=== PATIENT | female | born 1975 ===

== ENCOUNTER 2024-12-26 00:40 | Emergency (ER) | payer SELFPAY ==
[~2024-12-26] VITALS: Ht 165.1 cm; Wt 75.0 kg
[2024-12-26 01:11] VITALS: O2SAT 98
[2024-12-26 02:46] VITALS: BP 91/54; PULSE 74; RESP 14; TEMP 36.8; O2SAT 99
== END 2024-12-26 02:40 | disposition home or self-care (01) ==
LOC: ER 00:50
DX: T51.0X1A Toxic effect of ethanol, accidental (unintentional), initial encounter (principal); F10.129 Alcohol abuse with intoxication, unspecified; X58.XXXA Exposure to other specified factors, initial encounter; Y90.9 Presence of alcohol in blood, level not specified
CPT/HCPCS: 99283